=== PATIENT | male | born 1995 | race Caucasian/White ===

== ENCOUNTER 2016-11-30 10:12 | Emergency (ER) | payer SELFPAY ==
[~2016-11-30] VITALS: Ht 180.3 cm; Wt 75.0 kg
[2016-11-30 10:14] VITALS: BP 135/83; PULSE 79; RESP 17; TEMP 98; O2SAT 96
[2016-11-30] MEDS ORDERED: ZYRT10CA PO (10:45)
--- NOTE | 2016-11-30 10:46 | PD ---
HPI . Needs refill on inhalers Chief Complaint: Respiratory Symptoms Time Seen by Provider: 10:44 Travel History International Travel<30 days: No Contact w/Intl Traveler<30days: No Traveled to known affect area: No History of Present Illness HPI 20-year-old male with history of childhood asthma here with complaints of cough and occasional wheezing from 3 days prior. He says he is better, but thinks he may have had an asthma attack about 3 days ago and has been trying to treat himself at home. He does not have an inhaler and tells me he needs a refill. He says he has not had an asthma exacerbation for the past 3 years, but is unable to provide any detailed history of medication usage etc. He tells me his mom only knows this information. He is complaining of a cough and intermittent wheezing. His cough is non productive, but often time forces him to have to stop to catch his breath. He denies any significant shortness of breath, chest pain or cold like symptoms. He denies any fever or chills. PFSH Past Medical History Respiratory: Yes (asthma ) Social History Tobacco Use: No Allergies-Medications (Allergen,Severity, Reaction): Coded Allergies: Dog Dander (Verified Allergy, Unknown, 11/30/16) Reported Meds & Prescriptions Reported Meds & Active Scripts Active Proair Hfa 8.5 GM Inh (Albuterol Sulfate) 90 Mcg/Act Aer 2 Puff INH Q6H PRN 108 mcg/actuation Prednisone 50 Mg Tab 50 Mg PO DAILY Reported Zyrtec Allergy (Cetirizine HCl) 10 Mg Cap 10 Mg PO DAILY Review of Systems General / Constitutional: No: Fever Eyes: No: Visual changes HENT: No: Headaches Cardiovascular: No: Chest Pain or Discomfort Respiratory: Positive: Cough, Wheezing, No: Shortness of Breath Gastrointestinal: No: Abdominal Pain Genitourinary: No: Dysuria Musculoskeletal: No: Pain Skin: No Rash Neurologic: No: Weakness Psychiatric: No: Depression Endocrine: No: Polydipsia Hematologic/Lymphatic: No: Easy Bruising Physical Exam Narrative GENERAL: AAO x 3, no acute distress, Well-nourished, well-developed patient. SKIN: Warm and dry. No visible rashes or bruising. HEAD: Normocephalic and atraumatic. EYES: No scleral icterus. No injection or drainage. ENT: No nasal drainage noted. Mucous membranes pink. Airway patent. No posterior pharynx erythema, edema or exudates. NECK: Supple, trachea midline. No JVD. No lymphadenopathy CARDIOVASCULAR: Regular rate and rhythm without murmurs, gallops, or rubs. RESPIRATORY: No accessory muscle use. No rhonchi or rales. No audible wheezing. Aeration slightly diminished. There is a dry cough: occurred twice during examination GASTROINTESTINAL: Visual inspection was normal EXTREMITIES: No cyanosis or edema. BACK: Nontender without obvious deformity. No CVA tenderness. PSYCH: AAO x 3, normal affect. Data Data Last Documented VS Vital Signs Date Time Temp Pulse Resp B/P Pulse Ox O2 Delivery O2 Flow Rate FiO2 11/30/16 10:14 98.0 79 17 135/83 96 MDM Medical Decision Making Medical Screen Exam Complete: Yes Emergency Medical Condition: Yes Medical Record Reviewed: Yes Differential Diagnosis Bronchitis, sinusitis, asthma attack Narrative Course 20-year-old male with history of childhood asthma here with complaints of cough and occasional wheezing from 3 days prior. He says he is better, but thinks he may have had an asthma attack about 3 days ago and has been trying to treat himself at home. He does not have an inhaler and tells me he needs a refill. He says he has not had an asthma exacerbation for the past 3 years, but is unable to provide any detailed history of medication usage etc. He tells me his mom only knows this information. He is complaining of a cough and intermittent wheezing. His cough is non productive, but often time forces him to have to stop to catch his breath. He denies any significant shortness of breath, chest pain or cold like symptoms. He denies any fever or chills. Patient seen and examined. He appears to have an acute bronchitis. I am not certain if he actually had an asthmatic exacerbation 3 days prior or have significant amount of coughing. He is a poor historian and cannot relay his medical information properly. I will go ahead and treat with a course of prednisone. I have provided him with albuterol inhalers. I recommended he follow-up with primary care provider Patient verbalized understanding of instructions, questions were answered, and thanked me for their care. I advised them if their condition worsens, please return to the nearest emergency room for further care. Diagnosis Primary Impression: Acute bronchitis Qualified Code: J20.9 - Acute bronchitis, unspecified organism Additional Impression: History of asthma Patient Instructions: Acute Bronchitis (ED), General Instructions Additional Instructions: As we discussed the cough can last 6-8 weeks. Take medications as prescribed. If you are a smoker, try to quit. Follow up with your primary care provider. If you develop sudden onset or worsening of shortness or breath, please go to the nearest emergency room. Please return to emergency department if your symptoms return or worsen. Follow up with your primary care provider. Take medications as prescribed. Med/Other Pt SpecificInfo: Prescription(s) given Scripts Albuterol 8.5 GM Inh (Proair Hfa 8.5 GM Inh)90 Mcg/Act Aer2 Puff INH Q6H PRN ( SHORTNESS OF BREATH) #1 INHALER Ref 1 108 mcg/actuation Prov:Guerrero Murguia MD 11/30/16 Prednisone 50 Mg Tab50 Mg PO DAILY #5 TAB Prov:Guerrero Murguia MD 11/30/16 Disposition: 01 DISCHARGE HOME Condition: Stable Veronica Bedoya Nov 30, 2016 10:46
[2016-11-30] MEDS ORDERED: ALBUAER3 INH (10:47)
[2016-11-30] MEDS ORDERED: PRED50 PO (10:47)
== END 2016-11-30 11:06 | disposition home or self-care (01) ==
LOC: NEPK 10:12
DX: J20.9 Acute bronchitis, unspecified (principal)
CPT/HCPCS: 99282

== ENCOUNTER 2017-05-06 08:21 | Emergency (ER) | payer SELFPAY ==
[~2017-05-06] VITALS: Ht 180.3 cm; Wt 76.0 kg
[~2017-05-06 08:21] MED LIST: ALBUAER3 INH; PRED50 PO; ZYRT10CA PO
[2017-05-06 08:29] VITALS: BP 123/70; PULSE 99; RESP 17; TEMP 101.9; O2SAT 96
--- NOTE | 2017-05-06 08:38 | PD ---
HPI Chief Complaint: Headache Time Seen by Provider: 08:37 Travel History International Travel<30 days: No Contact w/Intl Traveler<30days: No Traveled to known affect area: No History of Present Illness HPI 21-year-old male came to the emergency room with history of fever, sore throat and headache that's been going on for past 3 days. Patient says that the symptoms are getting worse. This morning when he woke up his throat was very painful to swallow and he felt like he could not breathe. He says that his brother and mother were sick with similar symptoms but not as bad over the past 1 week before his symptoms started. Patient has a temperature 101.9 in triage. He seems to be in moderate distress. He is able to answer questions appropriately. He seems to be in pain when he tries to talk. No drooling. No history of neck ache or rigidity. No history of photophobia. Patient has history of asthma but otherwise relatively healthy. No history of significant weight loss recently. PFSH Past Medical History Narrative Medical List of his past medical, surgical, social and family history is reviewed from the nursing note. Respiratory: Yes (asthma ) Social History Tobacco Use: No Allergies-Medications (Allergen,Severity, Reaction): Coded Allergies: dog dander (Unverified Allergy, Unknown, 05/06/17) Comments List of his allergies reviewed from the nursing note. Reported Meds & Prescriptions Reported Meds & Active Scripts Active Ibuprofen 600 Mg Tab 600 Mg PO Q6H PRN Proair Hfa 8.5 GM Inh (Albuterol Sulfate) 90 Mcg/Act Aer 2 Puff INH Q6H PRN 108 mcg/actuation Reported Ibuprofen 200 Mg Tab 200 Mg PO Q4H PRN Narrative Medication List of his home medications reviewed from the nursing note. Review of Systems Except as stated in HPI: all other systems reviewed are Neg Physical Exam Narrative GENERAL: Awake, alert, moderate distress SKIN: Focused skin assessment warm/dry. HEAD: Atraumatic. Normocephalic. EYES: Pupils equal and round. No scleral icterus. No injection or drainage. ENT: No nasal bleeding or discharge. Mucous membranes pink and moist. Pharynx erythematous with no exudates, right tonsillar adenopathy with some erythema no exudates NECK: Trachea midline. No JVD. No signs of meningismus. Neck is supple. Bilateral anterior cervical lymphadenopathy that is soft and slightly tender CARDIOVASCULAR: Regular rate and rhythm. No murmur appreciated. RESPIRATORY: No accessory muscle use. Clear to auscultation. Breath sounds equal bilaterally. GASTROINTESTINAL: Abdomen soft, non-tender, nondistended. Hepatic and splenic margins not palpable. MUSCULOSKELETAL: No obvious deformities. No clubbing. No cyanosis. No edema. NEUROLOGICAL: Awake and alert. No obvious cranial nerve deficits. Motor grossly within normal limits. Normal speech. PSYCHIATRIC: Appropriate mood and affect; insight and judgment normal. Data Data Last Documented VS Vital Signs Date Time Temp Pulse Resp B/P (MAP) Pulse Ox O2 Delivery O2 Flow Rate FiO2 05/06/17 11:05 05/06/17 10:00 87 16 98 Room Air 05/06/17 08:29 101.9 Orders Orders Complete Blood Count With Diff (05/06/17 09:04) Comprehensive Metabolic Panel (05/06/17 09:04) Lactic Acid Sepsis Protocol (05/06/17 09:04) Urinalysis - C+S If Indicated (05/06/17 09:04) Influenzae A/B Antigen (05/06/17 09:04) Blood Culture (05/06/17 09:04) Chest, Single Ap (05/06/17 09:04) Blood Glucose (05/06/17 09:04) Ecg Monitoring (05/06/17 09:04) Iv Access Insert/Monitor (05/06/17 09:04) Oximetry (05/06/17 09:04) Oxygen Administration (05/06/17 09:04) Sodium Chlor 0.9% 1000 Ml Inj (Ns 1000 M (05/06/17 09:04) Sodium Chlor 0.9% 1000 Ml Inj (Ns 1000 M (05/06/17 09:04) Sodium Chlor 0.9% 1000 Ml Inj (Ns 1000 M (05/06/17 09:04) Group A Rapid Strep Screen (05/06/17 09:04) Ibuprofen (Motrin) (05/06/17 09:15) Potassium Chloride Eff (K-Lyte Cl Eff) (05/06/17 10:00) Strep Culture (Group A) (05/06/17 09:20) Labs Laboratory Tests Test 05/06/17 09:20 05/06/17 09:25 05/06/17 10:40 White Blood Count 5.0 TH/MM3 Red Blood Count 4.82 MIL/MM3 Hemoglobin 14.8 GM/DL Hematocrit 43.3 % Mean Corpuscular Volume 89.9 FL Mean Corpuscular Hemoglobin 30.7 PG Mean Corpuscular Hemoglobin Concent 34.1 % Red Cell Distribution Width 12.6 % Platelet Count 117 TH/MM3 Mean Platelet Volume 8.6 FL Neutrophils (%) (Auto) 56.4 % Lymphocytes (%) (Auto) 20.4 % Monocytes (%) (Auto) 19.8 % Eosinophils (%) (Auto) 2.9 % Basophils (%) (Auto) 0.5 % Neutrophils # (Auto) 2.8 TH/MM3 Lymphocytes # (Auto) 1.0 TH/MM3 Monocytes # (Auto) 1.0 TH/MM3 Eosinophils # (Auto) 0.1 TH/MM3 Basophils # (Auto) 0.0 TH/MM3 CBC Comment DIFF FINAL Differential Comment Blood Urea Nitrogen 8 MG/DL Creatinine 1.06 MG/DL Random Glucose 84 MG/DL Total Protein 7.8 GM/DL Albumin 3.5 GM/DL Calcium Level 8.6 MG/DL Alkaline Phosphatase 67 U/L Aspartate Amino Transf (AST/SGOT) 30 U/L Alanine Aminotransferase (ALT/SGPT) 16 U/L Total Bilirubin 0.4 MG/DL Sodium Level 137 MEQ/L Potassium Level 3.3 MEQ/L Chloride Level 102 MEQ/L Carbon Dioxide Level 28.0 MEQ/L Anion Gap 7 MEQ/L Estimat Glomerular Filtration Rate 87 ML/MIN Lactic Acid Level 1.0 mmol/L Urine Color YELLOW Urine Turbidity CLEAR Urine pH 8.0 Urine Specific Norris 1.014 Urine Protein NEG mg/dL Urine Glucose (UA) NEG mg/dL Urine Ketones NEG mg/dL Urine Occult Blood NEG Urine Nitrite NEG Urine Bilirubin NEG Urine Urobilinogen 2.0 MG/DL Urine Leukocyte Esterase NEG Urine WBC LESS THAN 1 /hpf Microscopic Urinalysis Comment CATH-CULT NOT IND MDM Medical Decision Making Medical Screen Exam Complete: Yes Emergency Medical Condition: Yes Medical Record Reviewed: Yes Differential Diagnosis Strep pharyngitis, viral pharyngitis, pneumonia, influenza Narrative Course 9:27 AM patient was given fluid bolus and labs as per sepsis protocol. Rapid strep and influenza is pending. Patient was given Motrin for the throat pain as well as fever. He will be reassessed in a bit. 10:36 AM blood test results are back. Patient has slight thrombocytopenia and hypokalemia but other than that they're within normal limits. I have ordered by mouth replacement for the potassium. Chest x-rays negative. Awaiting for the UA. I just reassessed the patient and he says he feels little better. Patient has given urine sample. He will be eventually discharged home. Procedures EKG Prior to Arrival: No Diagnosis Primary Impression: Viral pharyngitis Additional Impression: Viral illness Referrals: Primary Care Physician 2 days Additional Instructions: Please return to the ER if the condition worsens or any other new concerns. Make sure to drink lots of fluid to keep herself hydrated. Take the medicine prescription as per the direction if needed for pain and/or fever. Med/Other Pt SpecificInfo: Prescription(s) given Scripts Ibuprofen (Ibuprofen) 600 Mg Tab 600 MG PO Q6H Y for Pain/Inflammation, #40 TAB 0 Refills Prov: Sandip Pan MD 05/06/17 Disposition: 01 DISCHARGE HOME Condition: Stable Sandip Pan MD May 06, 2017 08:38
[2017-05-06] MEDS ORDERED: IBUP200T2 PO (08:47)
[2017-05-06 09:00] VITALS: BP 124/69; PULSE 95; RESP 14; O2SAT 98
[2017-05-06] MEDS ORDERED: SODIUM CHLOR 0.9% 1000 ML INJ 1,000 ML IV ONE ×2 (09:04)
[2017-05-06] MEDS ORDERED: SODIUM CHLOR 0.9% 1000 ML INJ 400 ML IV ONE (09:04)
[2017-05-06] MEDS ORDERED: IBUPROFEN 800 MG TAB PO ONE (09:15)
--- NOTE | 2017-05-06 09:21 | RADRPT ---
EXAM DATE/TIME: 05/06/2017 09:17 [facility] COMPARISON: No previous studies available for comparison. INDICATIONS : Chest pain, cough, and congestion. MEDICAL HISTORY : Asthma. SURGICAL HISTORY : None. ENCOUNTER: Initial ACUITY: 3 days PAIN SCORE: 5/10 LOCATION: Bilateral chest FINDINGS: A single view of the chest demonstrates the lungs to be symmetrically aerated without evidence of mas s, infiltrate or effusion. The cardiomediastinal contours are unremarkable. Osseous structures are intact. CONCLUSION: 1. No acute cardiopulmonary disease. Reed Gutierrez MD on May 06, 2017 at 9:18 Board Certified Radiologist. This report was verified electronically.
[2017-05-06 09:45] LABS: AUTOMATED NEUTROPHIL # 2.8 TH/MM3 (1.8-7.7); BASOPHIL % 0.5 % (0.0-2.0); EOSINOPHIL # 0.1 TH/MM3 (0-0.4); EOSINOPHIL % 2.9 % (0.0-4.0); HEMATOCRIT 43.3 % (39.0-51.0); HEMO FLAGS DIFF FINAL; LYMPH % 20.4 % (9.0-44.0); MEAN CELL VOLUME 89.9 FL (80.0-100.0); MEAN CORPUSCULAR HEMOGLOBIN 30.7 PG (27.0-34.0); MEAN CORPUSCULAR HGB CONC 34.1 % (32.0-36.0); MONO % 19.8 % (0.0-8.0); NEUT % 56.4 % (16.0-70.0); PLATELET COUNT 117 TH/MM3 (150-450); RED BLOOD COUNT 4.82 MIL/MM3 (4.50-5.90); RED CELL DISTRIBUTION WIDTH 12.6 % (11.6-17.2)
[2017-05-06 09:53] LABS: ANION GAP 7 MEQ/L (5-15); AST (GOT) 30 U/L (15-37); BLOOD UREA NITROGEN 8 MG/DL (7-18); CHLORIDE 102 MEQ/L (98-107); GLOMERULAR FILTRATION RATE 87 ML/MIN (>89); POTASSIUM 3.3 MEQ/L (3.5-5.1); SODIUM (NA) 137 MEQ/L (136-145)
[2017-05-06 09:55] LABS: ALT (GPT) 16 U/L (12-78)
[2017-05-06 09:57] LABS: ALKALINE PHOSPHATASE 67 U/L (45-117); TOTAL BILIRUBIN ADULT 0.4 MG/DL (0.2-1.0)
[2017-05-06 10:00] VITALS: BP 116/66; PULSE 87; RESP 16; O2SAT 98
[2017-05-06] MEDS ORDERED: POTASSIUM CHLORIDE 25 MEQ EFFERVESCENT TAB PO ONE (10:00)
[2017-05-06] MEDS ORDERED: IBUP-232 PO (10:40)
[2017-05-06 10:52] LABS: BLOOD, URINE NEG (NEG); COMMENT (UR) CATH-CULT NOT IND; CULTURE IF INDICATED CATH CULTURE NOT IND; GLUCOSE,URINE NEG (NEG); KETONE, URINE NEG (NEG); NITRITE,URINE NEG (NEG); URINE COLOR YELLOW (YELLW/STRAW)
== END 2017-05-06 11:06 | disposition home or self-care (01) ==
LOC: NEPE 08:21
DX: J02.8 Acute pharyngitis due to other specified organisms (principal); B97.89 Other viral agents as the cause of diseases classified elsewhere
CPT/HCPCS: 71010; 80053; 81001; 83605; 85025; 87040; 87081; 87804; 87880; 99284; J7030